=== PATIENT | female | born 1935 | race African-American/Black ===

== ENCOUNTER 2021-10-01 08:14 | Emergency (ER) | payer MEDICAID, OTHER ==
[~2021-10-01] VITALS: Ht 162.6 cm; Wt 57.0 kg
[2021-10-01] MEDS ORDERED: ACETAMINOPHEN 325MG TABLET PO STA (08:39)
[2021-10-01] MEDS ORDERED: SODIUM CHLORIDE 0.9% 1,000 ML IV ONE (08:45)
[2021-10-01 09:13] LABS: BASOPHILS % 0.9 % (0.0-2.0); EOSINOPHILS % 4.4 % (0.0-5.0); HEMATOCRIT. 29.8 % (36.0-48.0); HEMOGLOBIN. 9.3 g/dL (12.0-16.0); LYMPHOCYTES % 16.9 % (20.0-50.0); MEAN CORPUSCULAR HEMOGLOBIN 25.7 pg (28.0-32.0); MEAN CORPUSCULAR VOLUME 82.5 fL (81.0-99.0); MONOCYTES % 8.2 % (2.0-8.0); NEUTROPHILS % 69.6 % (40.0-76.0); PLATELET 325 x1000/uL (130-400); RED BLOOD CELL COUNT 3.62 mill/uL (4.2-5.4); RED CELL DISTRIBUTION WIDTH 16.6 % (11.6-14.6)
[2021-10-01 09:20] LABS: CHLORIDE 99 mEq/L (98-107)
[2021-10-01 10:36] VITALS: BP 167/71
== END 2021-10-02 14:33 | disposition short-term general hospital (02) ==
LOC: EDBEDREQTM 08:48 → ER 09:02 → CANBEDREQ 14:53 → ER 10-02 14:33
DX: R53.1 Weakness (principal); D64.9 Anemia, unspecified; E11.22 Type 2 diabetes mellitus with diabetic chronic kidney disease; I12.0 Hypertensive chronic kidney disease with stage 5 chronic kidney disease or end stage renal disease; N18.6 End stage renal disease
CPT/HCPCS: 36415; 70450; 71045; 72125; 73130; 80053; 83605; 83880; 84484; 85025; 93005; 96360; 99285; J7030

== ENCOUNTER 2023-10-30 16:08 | Inpatient (IN) | payer OTHER, MEDICAID, MEDICARE ==
[~2023-10-30] VITALS: Ht 162.6 cm; Wt 55.8 kg
[2023-10-30] MEDS: ALBUTEROL (0.083%) 2.5MG/3ML NEB HHN STA (18:00)
[2023-10-30] MEDS: IPRATROPIUM BROMIDE (0.02%) 0.5MG/2.5ML NEB HHN STA (18:00)
[2023-10-30 18:02] VITALS: PULSE 68; RESP 20
[2023-10-30] MEDS: ONDANSETRON HCL 4MG/2ML INJ IV STA (18:05)
[2023-10-30] MEDS: MORPHINE SULFATE 4 MG/ML INJ (FOR IV/IM USE) IV STA (18:05)
[2023-10-30] MEDS: METHYLPREDNISOLONE SOD SUCC 125MG/2ML (ACT-O-VIAL) IV STA (18:05)
[2023-10-30 20:47] LABS: HEMATOCRIT. 32.6 % (36.0-48.0); HEMOGLOBIN. 10.5 g/dL (12.0-16.0); MEAN CORPUSCULAR HEMOGLOBIN 27.6 pg (28.0-32.0); MEAN CORPUSCULAR HGB CONC 32.1 g/dL (31.0-37.0); PLATELET 174 x1000/uL (130-400); RED BLOOD CELL COUNT 3.79 mill/uL (4.2-5.4); RED CELL DISTRIBUTION WIDTH 17.3 % (11.6-14.6); WHITE BLOOD COUNT 5.4 x1000/uL (4.5-11.0)
[2023-10-30 20:48] LABS: DIFFERENTIAL COMMENT 1
[2023-10-30 20:53] LABS: CHLORIDE 103 mEq/L (98-107); POTASSIUM 4.4 mEq/L (3.5-5.1); SODIUM 140 mEq/L (136-145)
[2023-10-30 20:54] LABS: CALCIUM 6.8 mg/dL (8.7-10.4); CARBON DIOXIDE 25 mEq/L (21-32)
[2023-10-30 20:55] LABS: PROTHROMBIN TIME 11.1 sec (9.6-11.0)
[2023-10-30 20:59] LABS: GLUCOSE 183 mg/dL (70-105); UREA NITROGEN BLOOD 62 mg/dL (9-23)
[2023-10-30 21:00] LABS: TROPONIN I HIGH SENSITIVITY 6 ng/L (3.0-34)
[2023-10-30 21:01] LABS: ALANINE AMINOTRANSFERASE 18 IU/L (10-49); ALBUMIN 4.2 g/dL (3.2-4.8); ASPARTATE AMINOTRANSFERASE 20 IU/L (<34); BILIRUBIN TOTAL 0.2 mg/dL (0.1-1.0)
[2023-10-30 21:09] LABS: BILIRUBIN DIRECT < 0.1 mg/dL (<=3.0)
[2023-10-30 21:11] LABS: CREATININE 8.9 mg/dL (0.6-1.0)
[2023-10-30] MEDS ORDERED: IPRATROPIUM/ALBUTEROL 0.5-3(2.5)MG/3ML NEB NEB PRN (22:00)
[2023-10-30] MEDS ORDERED: GUAIFENESIN 200MG/10ML SUGAR FREE UDC PO PRN (22:00)
[2023-10-30] MEDS ORDERED: ONDANSETRON HCL 4MG/2ML INJ IV PRN (22:00)
[2023-10-30] MEDS ORDERED: MAGNESIUM/ALUMINUM HYDROXIDE/SIMETHICONE 30ML UDC PO PRN (22:00)
[2023-10-30] MEDS ORDERED: DOCUSATE SODIUM 100MG CAPSULE PO PRN (22:00)
[2023-10-30] MEDS ORDERED: NITROGLYCERIN 0.4MG TABLET SL SL PRN (22:00)
[2023-10-30] MEDS ORDERED: ACETAMINOPHEN 325MG TABLET PO PRN (22:00)
[2023-10-30 22:15] LABS: ANISOCYTOSIS 1+; PLATELET ESTIMATE NORMAL
[2023-10-30 22:16] LABS: HYPOCHROMASIA 1+; OVALOCYTES 1+
[2023-10-30 23:39] LABS: BG BASE EXCESS -1.4 mmol/L (-2.0-3.0); BG CARBOXYHEMOGLOBIN 0.6 % (0.5-1.5); BG DEOXYHEMOGLOBIN 6.3 % (0.0-5.0); BG FRACTION INSPIRED OXYGEN 21; BG HCO3 ACT 24.1 mmol/L (21.0-28.0); BG METHEMOGLOBIN 0.3 % (0.5-1.5); BG OXYGEN SATURATION 93.6 % (94.0-98.0); BG OXYHEMOGLOBIN 92.8 % (94.0-98.0); BG PH 7.357 (7.350-7.450); BG PO2 72.3 mmHg (83.0-108.0); BG SAMPLE SITE LEFT RADIAL; BG TOTAL HEMOGLOBIN 11.7 g/dL (12.0-16.0); BG VENT MODE ROOM AIR
[2023-10-30 23:48] LABS: IRON 49 ug/dL (50-170)
[2023-10-30 23:49] LABS: LDL CHOLESTEROL 81 mg/dL (5-100); TRIGLYCERIDE 93 mg/dL (0-150)
[2023-10-30 23:51] LABS: CHOLESTEROL 178 mg/dL (<200); HDL CHOLESTEROL 68 mg/dL (>65); TOTAL IRON BINDING CAPACITY 278 ug/dl (250-425)
[2023-10-30 23:53] LABS: FOLIC ACID (FOLATE) SERUM 15.47 ng/mL (>5.38)
[2023-10-30 23:54] LABS: THYROID STIMULATING HORMONE 2.44 uIU/mL (0.55-4.78)
[2023-10-30 23:55] LABS: T4 FREE 0.85 ng/dL (0.89-1.76)
[2023-10-31] MEDS: FAMOTIDINE 20MG TABLET PO SCH (01:08)
[2023-10-31] MEDS: AZITHROMYCIN 500MG/250ML 250 ML IV SCH ×2 (01:09→23:19)
[2023-10-31] MEDS: METHYLPREDNISOLONE SOD SUCC 125MG/2ML (ACT-O-VIAL) IV SCH (01:09)
[2023-10-31 05:54] LABS: CHLORIDE 100 mEq/L (98-107); POTASSIUM 5.5 mEq/L (3.5-5.1); SODIUM 138 mEq/L (136-145)
[2023-10-31 05:58] LABS: CARBON DIOXIDE 23 mEq/L (21-32)
[2023-10-31 06:04] LABS: GLUCOSE 240 mg/dL (70-105)
[2023-10-31 06:05] LABS: ALBUMIN 4.4 g/dL (3.2-4.8)
[2023-10-31 06:06] LABS: ALANINE AMINOTRANSFERASE 17 IU/L (10-49); ASPARTATE AMINOTRANSFERASE 20 IU/L (<34); PHOSPHORUS 7.1 mg/dL (2.5-4.9); UREA NITROGEN BLOOD 65 mg/dL (9-23)
[2023-10-31 06:08] LABS: BILIRUBIN TOTAL 0.2 mg/dL (0.1-1.0); PROTEIN TOTAL 7.1 g/dL (6.0-8.3)
[2023-10-31 06:35] LABS: CREATININE 9.3 mg/dL (0.6-1.0)
[2023-10-31] MEDS: SEVELAMER CARBONATE 800 MG TABLET PO SCH (07:31)
[2023-10-31] MEDS: ENOXAPARIN 30MG/0.3ML SYR SUBCUT SCH (09:42)
[2023-10-31] MEDS: GUAIFENESIN 600MG ER TABLET PO SCH (09:42)
[2023-10-31] MEDS: METOPROLOL TARTRATE 25MG TABLET PO SCH (09:42)
[2023-10-31 09:57] LABS: HEMOGLOBIN. 10.5 g/dL (12.0-16.0); MEAN CORPUSCULAR HEMOGLOBIN 27.6 pg (28.0-32.0); MEAN CORPUSCULAR HGB CONC 31.7 g/dL (31.0-37.0); MEAN CORPUSCULAR VOLUME 87.1 fL (81.0-99.0); MEAN PLATELET VOLUME 7.7 fl (7.4-10.4); PLATELET 189 x1000/uL (130-400); RED BLOOD CELL COUNT 3.79 mill/uL (4.2-5.4); RED CELL DISTRIBUTION WIDTH 17.6 % (11.6-14.6); WHITE BLOOD COUNT 4.2 x1000/uL (4.5-11.0)
[2023-10-31 10:12] LABS: DIFFERENTIAL COMMENT 1
[2023-10-31 12:00] VITALS: BP 162/57; PULSE 77; RESP 20; TEMP 36.6696; O2SAT 100
[2023-10-31 14:40] LABS: HEPATITIS B SURFACE ANTIGEN NEGATIVE (Negative)
[2023-10-31 14:42] LABS: VITAMIN B12 SERUM 594 pg/mL (211-911)
[2023-10-31 15:01] LABS: HEPATITIS A AB IGM NEGATIVE (Negative)
[2023-10-31 15:02] LABS: HEPATITIS B CORE AB IGM NEGATIVE (Negative)
[2023-10-31 15:03] LABS: HEPATITIS C AB NON REACTIVE (Neg) (Negative)
[2023-10-31 15:04] LABS: ANISOCYTOSIS 1+; PLATELET ESTIMATE NORMAL
[2023-10-31 16:30] VITALS: BP 171/64; PULSE 75; RESP 20; TEMP 36.6696; O2SAT 100
[2023-10-31] MEDS: ACETAMINOPHEN 325MG TABLET PO PRN (18:03)
[2023-10-31 20:00] VITALS: BP 182/78; PULSE 81; RESP 20; TEMP 36.6696; O2SAT 100
[2023-10-31] MEDS: CLONIDINE 0.1MG TABLET PO PRN (21:20)
[2023-10-31] MEDS: ZOLPIDEM TARTRATE 5MG TABLET PO PRN (23:19)
[2023-10-31 23:21] VITALS: BP 182/78; PULSE 81; RESP 20; TEMP 36.696
[2023-11-01] VITALS (14 sets, daily range): BP systolic 113–178; BP diastolic 62–78; PULSE 65–75; RESP 16–20; TEMP 36.22512–36.78072; O2SAT 97–100
[2023-11-01 07:27] LABS: CALCIUM 6.8 mg/dL (8.7-10.4); CARBON DIOXIDE 20 mEq/L (21-32); CHLORIDE 99 mEq/L (98-107); POTASSIUM 5.6 mEq/L (3.5-5.1); SODIUM 137 mEq/L (136-145)
[2023-11-01 07:33] LABS: GLUCOSE 128 mg/dL (70-105); UREA NITROGEN BLOOD 91 mg/dL (9-23)
[2023-11-01 07:35] LABS: PHOSPHORUS 7.5 mg/dL (2.5-4.9)
[2023-11-01 07:52] LABS: CREATININE 10.2 mg/dL (0.6-1.0)
[2023-11-01 08:03] LABS: HEMATOCRIT. 33.8 % (36.0-48.0); HEMOGLOBIN. 10.8 g/dL (12.0-16.0); MEAN CORPUSCULAR HEMOGLOBIN 27.6 pg (28.0-32.0); MEAN CORPUSCULAR HGB CONC 31.9 g/dL (31.0-37.0); MEAN CORPUSCULAR VOLUME 86.7 fL (81.0-99.0); MEAN PLATELET VOLUME 7.6 fl (7.4-10.4); PLATELET 207 x1000/uL (130-400); RED BLOOD CELL COUNT 3.91 mill/uL (4.2-5.4); RED CELL DISTRIBUTION WIDTH 17.2 % (11.6-14.6); WHITE BLOOD COUNT 6.8 x1000/uL (4.5-11.0)
[2023-11-01 08:22] LABS: DIFFERENTIAL COMMENT 1
[2023-11-01] MEDS: SODIUM POLYSTYRENE SULFONATE 15 G/60 ML BOT PO SCH (08:44)
[2023-11-01] MEDS: SODIUM BICARBONATE 8.4% 50MEQ/50ML SYR IV SCH (08:46)
[2023-11-01 13:11] LABS: POTASSIUM 4.9 mEq/L (3.5-5.1)
[2023-11-01 16:19] LABS: PLATELET ESTIMATE NORMAL
[2023-11-01] MEDS: AZITHROMYCIN 500 MG TABLET PO SCH (22:08)
[2023-11-02] VITALS: BP 169/76; PULSE 73; RESP 20; TEMP 36.33624; O2SAT 100
[2023-11-02 02:10] VITALS: BP 150/55; PULSE 69; TEMP 97.4; O2SAT 98
[2023-11-02] MEDS ORDERED: FAMOTIDINE 20MG TABLET PO SCH (09:00)
== END 2023-11-02 02:27 | disposition short-term general hospital (02) | DRG 189 ==
LOC: ER 16:08 → EDBEDREQSVC 21:08 → EDBEDREQ 21:08 → EDBEDREQTM 21:08 → 5WST 10-31 00:09 → 6WST 10-31 12:23
PROVIDERS: ADMIT Internal Medicine; ATTEND Internal Medicine
PROC: 5A1D70Z Performance of Urinary Filtration, Intermittent, Less than 6 Hours Per Day (ICD-10-PCS; principal; 2023-11-01)
DX: J96.01 Acute respiratory failure with hypoxia (principal); I50.33 Acute on chronic diastolic (congestive) heart failure; N18.6 End stage renal disease; I13.2 Hypertensive heart and chronic kidney disease with heart failure and with stage 5 chronic kidney disease, or end stage renal disease; J44.1 Chronic obstructive pulmonary disease with (acute) exacerbation; E87.5 Hyperkalemia; E11.22 Type 2 diabetes mellitus with diabetic chronic kidney disease; E78.5 Hyperlipidemia, unspecified; Z79.4 Long term (current) use of insulin; Z87.891 Personal history of nicotine dependence; Z99.2 Dependence on renal dialysis; Z82.49 Family history of ischemic heart disease and other diseases of the circulatory system; Z83.3 Family history of diabetes mellitus
CPT/HCPCS: 36415; 36600; 71045; 74176; 80048; 80053; 80061; 80076; 80305; 82375; 82607; 82746; 82805; 83036; 83540; 83550; 83735; 84100; 84132; 84439; 84443; 84484; 85025; 86705; 86709; 87340; 90935; 93005; 93970; 94640; 99285; C1893; J0456; J1650; J2405; J2919; J3490